=== PATIENT | female | born 1980 | race Hispanic/Latino ===

== ENCOUNTER 2019-06-18 06:56 | Day surgery (SDC) | payer OTHER ==
[~2019-06-18] VITALS: Ht 162.6 cm; Wt 72.6 kg
[~2019-06-18 06:56] MED LIST: GLIP-196 PO; MULT1CAP32 PO; SITA1TAB2 PO; SODIUM CHLORIDE 0.9% 1000ML 1,000 ML IV ONE
[2019-06-18 07:22] VITALS: BP 151/82
[2019-06-18] MEDS ORDERED: PROPOFOL 10 MG/ML 20ML VIAL IV ONE ×3 (07:25→09:36)
[2019-06-18] MEDS ORDERED: SIMETHICONE 40 MG/0.6 ML ML ONE (09:12)
[2019-06-18] MEDS ORDERED: LEVOFLOXACIN 500 MG/D5W 100 ML 100 ML IV SCH (09:30)
[2019-06-18 10:00] VITALS: BP 92/59
[2019-06-18 10:05] VITALS: BP 118/62
[2019-06-18 10:10] VITALS: BP 124/74
== END 2019-06-18 10:24 | disposition home or self-care (01) ==
LOC: DAH 06:56 → ENDO 06:56
PROVIDERS: ATTEND Internal Medicine Gastroenterology
DX: K86.2 Cyst of pancreas (principal); K21.9 Gastro-esophageal reflux disease without esophagitis; K86.1 Other chronic pancreatitis; C54.1 Malignant neoplasm of endometrium; K59.00 Constipation, unspecified; F17.210 Nicotine dependence, cigarettes, uncomplicated; E11.9 Type 2 diabetes mellitus without complications; Z87.442 Personal history of urinary calculi; Z79.899 Other long term (current) drug therapy; Z88.8 Allergy status to other drugs, medicaments and biological substances
CPT/HCPCS: 43238; 81025; 82948 ×2; A4215 ×2; A4221; A4222; A4223; A4606; A4615; A4663; J1956; J2704 ×3; J7030